=== PATIENT | female | born 1995 | race Caucasian/White ===

== ENCOUNTER 2019-09-16 01:05 | Emergency (ER) | payer BC, SELFPAY ==
[2019-09-16 01:06] VITALS: BP 137/86; PULSE 89; RESP 18; TEMP 36.9; O2SAT 98; BMI 46.5
--- NOTE | 2019-09-16 01:22 | RAD_ITS ---
STUDY: X-RAY CHEST REASON FOR EXAM: Female, 24 years old. C/o heaviness in chest intermittently for a few months TECHNIQUE: Single AP portable view of the chest. COMPARISON: None. FINDINGS: The lungs are clear and expanded. There is no demonstrated pleural abnormality. Normal size heart. Normal mediastinum and vic. Normal visualized pulmonary arteries. Normal visualized aortic arch and descending thoracic aorta. Normal visualized thoracic spine. Normal visualized ribs, clavicles, and shoulders. There is no demonstrated abnormality of the visualized soft tissue structures of the upper abdomen. RAD/Chest 1 View (Portable) IMPRESSION: Normal x-ray examination of the chest. Electronically Signed: Ingrid Mccormick MD at 1:57 EDT Tel , Service support ,
--- NOTE | 2019-09-16 01:22 | EKG12_ITS ---
Test Reason : CHEST DISCOMFORT Blood Pressure : / mmHG Vent. Rate : 070 BPM Atrial Rate : 070 BPM P-R Int : 152 ms QRS Dur : 088 ms QT Int : 374 ms P-R-T Axes : 032 053 041 degrees QTc Int : 403 ms Normal sinus rhythm Normal ECG Confirmed by NIMA DELONG, WILLIAM ([id number]), order editor JUAN CARLOS AVILA ([id number]) on 09/17/2019 9:03:52 AM Referred By: RU Confirmed By:WILLIAM HERRING MD
--- NOTE | 2019-09-16 01:24 | ED.RN ---
NO OLD EKGS IN MUSE
--- NOTE | 2019-09-16 01:25 | ED.VISSUMM ---
- ER Visit Summary Date of Service: 09/16/19 Chief Complaint: [Chest pain] History of Present Illness: The patient is a 24 F [presents to the emergency department chief complaint of chest discomfort for the last 2 hours. Patient has a tightness in her throat. Patient has some discomfort into the lower chest as well. She feels short of breath when trying to lay flat. Patient states that she has had similar symptoms over the last 3 months or so off and on. She denies recent travel or surgery. No history of PE or DVT. She is not on oral contraceptive. She does have history of anxiety and had been on Zoloft until about 2 years ago. Patient states that she feels like this is different than her anxiety used to be. She denies illicit drug use. Patient denies any fever or cough.] Physical Examination: [HEENT-PERRLA, EOMI. Cranial nerves II through XII grossly intact. TMs clear. Mucous membranes moist. No adenopathy. Cardiovascular-regular rate and rhythm without murmur or ectopy Lungs-clear to auscultation, chest wall stable without crepitus or subcu emphysema Abdomen-normoactive bowel sounds, soft, nontender, no rebound or rigidity, no peritoneal signs. Extremities-intact ?4, normal range of motion, normal pulses, atraumatic] Test Results: [EKG obtained arrival shows sinus rhythm with a ventricular rate of 70 bpm with no acute segment changes.] Emergency Department Course and Treatment: [EKG obtained on arrival shows sinus rhythm with a ventricular rate of 76 bpm with no acute ST segment changes. CBC with differential was normal. Chemistries normal. LFTs normal. Troponin is less than 0.015. D-dimer was normal. Chest x-ray was normal.] Treatment Plan: [Patient to follow-up with primary care physician in 3 to 5 days. Etiology of her symptoms unclear. We talked about possibility of GERD versus anxiety. I certainly do not feel she is having acute coronary syndrome.] Disposition: [Discharged home in stable condition] Impression: [Chest pain-etiology uncertain] This note was generated with [id number] software. It may contain incorrect words, spelling, and punctuation that were not noted in review of the chart prior to signing
[2019-09-16 01:48] LABS: Absolute Lymphocyte Count 3.55 X10^3/uL (0.83-4.51); Absolute Neutrophil Count 4.7 X10^3/uL (2.0-7.7); Basophil# 0.03 X10^3/uL; Basophil% 0.3 % (0-1); Eosinophil# 0.16 X10^3/uL; Eosinophils% 1.7 % (0-5); Hematocrit 40.5 % (37-47); Hemoglobin 13.7 g/dL (12.0-15.0); Lymphocyte # 3.55 X10^3/ul (4.0); Lymphocyte % 38.5 % (19-41); Mean Corp Hgb Conc 33.8 g/dL (32-36); Mean Corpuscular Hgb 30.1 pg (27.0-32.0); Mean Platelet Vol. 9.4 fl (6.2-12.0); Monocyte# 0.77 X10^3/uL; Monocyte% 8.4 % (0-10); NRBC Flagged by Analyzer 0 % (0-5); Neutrophil # 4.68 X10^3/uL (2.7-7.7); Neutrophil % 50.9 % (47-70); Platelet Count 319 K/mm3 (150-450); RBC Distribution Width CV 12.4 % (11.6-14.6); RBC Distribution Width SD 40.1 fl (35.1-43.9); Red Blood Count 4.55 M/mm3 (4.2-5.4); White Blood Count 9.2 K/mm3 (4.4-11.0)
[2019-09-16 02:03] LABS: D-Dimer Quantitative (DVT/PE) <= 0.27 FEU/ug/m (0.27-0.49)
[2019-09-16 02:07] LABS: ALB/GLOB Ratio 1.1 RATIO (0.9-2.4); AST(SGOT) 18 U/L (15-37); Alanine Aminotransfer ALT/SGPT 31 U/L (13-56); Alkaline Phosphatase 70 U/L (45-117); Anion Gap 6 (5-15); BUN 13 mg/dL (7-18); Calcium,Total 9.7 mg/dL (8.5-10.1); Chloride 106 mmol/L (98-107); Creatinine, Serum 0.76 mg/dL (0.55-1.02); EST Glomerular Filtration Rate 100 mL/min (>60); Est Glom Filt Rate - Afr Amer 121 mL/min (>60); Estimated Creatinine Clearance 111.95 ml/min; Globulin 3.7 g/dL (2.2-4.2); Glucose 90 mg/dL (74-106); Potassium 3.4 mmol/L (3.5-5.1); Protein, Total 7.7 g/dL (6.4-8.2); Sodium Level 137 mmol/L (136-145)
--- NOTE | 2019-09-16 02:13 | ED.DEP ---
ED Disposition - Plan for ED Patient: Instructions: ED Chest Pain Atypical Unkn Cause Referrals: SISI STEWART [Other] - 3-5 Days
[2019-09-16 02:22] VITALS: BP 130/80; PULSE 84; RESP 16; O2SAT 100
== END 2019-09-16 02:23 | disposition home or self-care (01) ==
LOC: ED 02:02
PROVIDERS: Emergency Provider Emergency Medicine
DX: R07.9 Chest pain, unspecified (principal)
CPT/HCPCS: 36415; 71045; 80053; 84484; 85025; 85379; 93005; 99284; A4216